=== PATIENT | female | born 1935 | race Caucasian/White ===

== ENCOUNTER → 2021-04-02 | Outpatient (CLI) | payer MEDICARE ==
[~2021-04-02] VITALS: Ht 162.6 cm; Wt 75.0 kg
[~2021-04-02] MED LIST: LIDOCAINE 1% INJ 20 ML 20 ML VIAL INJ ONE
--- NOTE | 2021-04-02 10:30 | Diagnostic Imaging Report ---
INDICATION: Abnormal breast calcifications. TECHNIQUE AND FINDINGS: A Mammotome biopsy was performed utilizing lateral medial technique. Preliminary mammograms were obtained for localization purposes. The patient's skin was prepped and draped utilizing maximal sterile barrier technique. Local anesthesia was obtained with 2% lidocaine. A Mammotome needle was advanced into the lesion under mammotome biopsy. Four core biopsy specimens were obtained. Specimen radiograph demonstrated satisfactory microcalcifications. A surgical clip was placed. Post clip placement mammograms demonstrated satisfactory clip placement. IMPRESSION: Successful mammotome biopsy of left breast calcifications as described. Satisfactory specimen radiograph. Satisfactory clip placement. Dictated by: Dictated on workstation # [id number]
== END ==
LOC: RAD 08:35
PROVIDERS: ATTEND Family Medicine
DX: R92.1 Mammographic calcification found on diagnostic imaging of breast (principal)
CPT/HCPCS: 19081; A4648